=== PATIENT | female | born 1975 | race Caucasian/White ===

== ENCOUNTER 2018-06-14 18:50 | Emergency (ER) | payer OTHER ==
[2018-06-14 19:06] VITALS: BP 150/77
[2018-06-14] MEDS ORDERED: LIDOCAINE 1% SDV 5 ML VIAL DILUENT ONE (19:15)
[2018-06-14] MEDS ORDERED: AZITHROMYCIN 250 MG TAB PO ONE (19:15)
[2018-06-14] MEDS ORDERED: cefTRIAXone SOD 250 MG VIAL (J0696) IM ONE (19:15)
[2018-06-14 20:50] LABS: CHLAMYDIA DNA AMPLIFICATION NEGATIVE (NEGATIVE); GC DNA AMPLIFICATION POSITIVE (NEGATIVE)
[2018-06-14 22:17] LABS: HIV 1&2 SCREEN CENTAUR NEGATIVE (NEGATIVE)
[2018-06-16 13:17] LABS: HEPATITIS B SURFACE ANTIBODY NEGATIVE (POSITIVE); HEPATITIS B SURFACE ANTIGEN NEGATIVE (NEGATIVE); HEPATITIS C VIRUS ABY INDEX 0.1 INDEX (<0.8)
== END 2018-06-14 19:57 | disposition home or self-care (01) ==
LOC: M ED 18:50
DX: Z20.2 Contact with and (suspected) exposure to infections with a predominantly sexual mode of transmission (principal); Z88.6 Allergy status to analgesic agent
CPT/HCPCS: 86706; 86780; 86803; 87210; 87340; 87389; 87491; 87591; 96372; 99283; J0696

== ENCOUNTER 2018-07-06 09:41 | Emergency (ER) | payer OTHER ==
[~2018-07-06] VITALS: Ht 157.5 cm; Wt 76.5 kg
[2018-07-06] MEDS ORDERED: GI COCKTAIL 50ML BTL(HYOSCYAMINE/MAALOX/LIDOCAINE VISCOUS)(1:3:1) PO ONE (10:45)
[2018-07-06] MEDS ORDERED: ONDANSETRON 4 MG ORAL DISINTEGRATING TAB (Q0162 PER 1MG) PO ONE (11:15)
[2018-07-06] MEDS ORDERED: PROT1TAB2 PO (13:07)
[2018-07-06] MEDS ORDERED: CARA1TAB6 PO (13:07)
[2018-07-06 13:15] VITALS: BP 120/68
--- NOTE | 2018-07-06 13:22 | REP ---
ABDOMINAL SERIES: Supine and erect views of the abdomen demonstrate no free air and no evidence for bowel obstruction. No dilated small bowel loops are seen. Phleboliths are seen in the left pelvis. There is spina bifida occulta of L5 which is a normal variant. An accompanying view of the chest demonstrates no acute infiltrate. Heart is normal in size and the mediastinal silhouette is unremarkable. IMPRESSION: No evidence of free air or obstruction. Lungs are clear. Electronically Signed by Boubacar Taylor MD 07/07/2018 09:22 A
--- NOTE | 2018-07-07 06:01 | ECGEPIP ---
[facility] - ED Test Date: 2018-07-06 Pat Name: CIELO COOK Department: Room: - Gender: F Display Coordinator: rigo : 1975 Requested By: JENNY GUAJARDO PA-C. Order Number: [id number] Reading MD: Mauro Cheema Measurements Intervals [place] Rate: 78 P: 47 IL: 142 QRS: 37 QRSD: 86 T: 43 QT: 361 QTc: 414 Interpretive Statements SINUS RHYTHM NO PRIORS FOR COMPARISON Electronically Signed on 07-07-2018 6:00:35 EDT by Mauro Cheema
== END 2018-07-06 13:17 | disposition home or self-care (01) ==
LOC: M ED 09:41
DX: K29.00 Acute gastritis without bleeding (principal); Z88.6 Allergy status to analgesic agent
CPT/HCPCS: 74021; 93005; 99284; Q0162

== ENCOUNTER → 2018-10-07 | Outpatient (REF) | payer OTHER ==
[~2018-10-07] MED LIST: CARA1TAB6 PO; PROT1TAB2 PO
[2018-10-07 12:12] LABS: C REACTIVE PROTEIN QUANTITATIV < 0.30 MG/DL (0.00-0.30); RHEUMATOID FACTOR QUANT < 10.0 IU/ML (<15.0)
[2018-10-07 12:35] LABS: ALBUMIN 4.3 GM/DL (3.2-5.2); ALT/SGPT 29 U/L (12-78); BILIRUBIN,TOTAL 0.5 MG/DL (0.2-1.0); BLOOD UREA NITROGEN 12 MG/DL (7-18); CALCIUM LEVEL 9.1 MG/DL (8.5-10.1); CARBON DIOXIDE LEVEL 26 MEQ/L (21-32); CHLORIDE LEVEL 107 MEQ/L (98-107); CHOLESTEROL LEVEL 165 MG/DL (<200); CHOLESTEROL RISK RATIO 4.024 (<5); CREATININE FOR GFR 0.81 MG/DL (0.55-1.30); GLOMERULAR FILTRATION RATE > 60.0 (>58); GLUCOSE, FASTING 86 MG/DL (70-100); HDL CHOLESTEROL 41 MG/DL (>40); LDL CHOLESTEROL 108 MG/DL (<100); NON-HDL-C 124 MG/DL; POTASSIUM SERUM 4.2 MEQ/L (3.5-5.1); SODIUM LEVEL 141 MEQ/L (136-145); TOTAL PROTEIN 7.4 GM/DL (6.4-8.2); TRIGLYCERIDES LEVEL 81 MG/DL (<150)
[2018-10-07 13:52] LABS: CHLAMYDIA DNA AMPLIFICATION NEGATIVE (NEGATIVE); GC DNA AMPLIFICATION NEGATIVE (NEGATIVE)
[2018-10-08 11:11] LABS: HIV 1&2 SCREEN CENTAUR NEGATIVE (NEGATIVE)
[2018-10-08 14:50] LABS: ANTINUCLEAR ANTIBODIES DIRECT Negative (Negative)
== END ==
LOC: M SFHCPLAZ 08:20
PROVIDERS: ATTEND Nurse Practitioner Family
DX: Z00.00 Encounter for general adult medical examination without abnormal findings (principal); Z13.220 Encounter for screening for lipoid disorders; Z20.2 Contact with and (suspected) exposure to infections with a predominantly sexual mode of transmission; Z11.59 Encounter for screening for other viral diseases; M25.50 Pain in unspecified joint
CPT/HCPCS: 36415; 80053; 80061; 85652; 86038; 86140; 86431; 86780; 87389; 87491; 87591; G0472

== ENCOUNTER 2019-09-01 13:09 | Inpatient (IN) | payer OTHER ==
[~2019-09-01] VITALS: Ht 157.5 cm; Wt 82.2 kg
[2019-09-01] MEDS ORDERED: HYDROXYZINE 10 MG (13:19)
[2019-09-01 14:01] LABS: HEMATOCRIT 47.1 % (36.0-47.0); HEMOGLOBIN 15.5 g/dl (12.0-15.5); MEAN CORPUSCULAR HEMOGLOBIN 28.5 pg (27.0-33.0); MEAN CORPUSCULAR HGB CONC 32.9 g/dl (32.0-36.5); MEAN CORPUSCULAR VOLUME 86.6 fl (80.0-96.0); PLATELET COUNT, AUTOMATED 281 10^3/uL (150-450); RED BLOOD COUNT 5.44 10^6/uL (4.00-5.40); WHITE BLOOD COUNT 17.1 10^3/uL (4.0-10.0)
[2019-09-01 14:29] LABS: AMPHETAMINES LEVEL URINE NEGATIVE (NEGATIVE); BARBITURATES URINE NEGATIVE (NEGATIVE); BENZODIAZEPINES URINE NEGATIVE (NEGATIVE); CANNABINOIDS URINE NEGATIVE (NEGATIVE); COCAINE METABOLITE URINE NEGATIVE (NEGATIVE); METHADONE URINE NEGATIVE (NEGATIVE); OPIATES URINE NEGATIVE (NEGATIVE); PHENCYCLIDINE URINE NEGATIVE (NEGATIVE)
[2019-09-01 14:43] LABS: HCG, SERUM QUALITATIVE NEGATIVE (NEGATIVE)
[2019-09-01 14:46] LABS: ACETAMINOPHEN LEVEL < 2.0 UG/ML (10.0-30.0); ALBUMIN 4.4 GM/DL (3.2-5.2); ALT/SGPT 44 U/L (12-78); BILIRUBIN,DIRECT 0.2 MG/DL (0.0-0.2); BILIRUBIN,TOTAL 0.5 MG/DL (0.2-1.0); BLOOD UREA NITROGEN 5 MG/DL (7-18); CALCIUM LEVEL 9.3 MG/DL (8.5-10.1); CARBON DIOXIDE LEVEL 25 MEQ/L (21-32); CHLORIDE LEVEL 106 MEQ/L (98-107); CREATININE FOR GFR 0.85 MG/DL (0.55-1.30); ETHYL ALCOHOL (ETHANOL) < 0.003 % (0.000-0.010); GLOMERULAR FILTRATION RATE > 60.0 (>58); GLUCOSE, FASTING 105 MG/DL (70-100); POTASSIUM SERUM 4.1 MEQ/L (3.5-5.1); SALICYLATE LEVEL 3.5 MG/DL (5.0-30.0); SODIUM LEVEL 138 MEQ/L (136-145); TOTAL PROTEIN 8.1 GM/DL (6.4-8.2)
[2019-09-01] MEDS ORDERED: MAALOX 30 ML SUSP *UDC PO PRN (19:00)
[2019-09-01] MEDS ORDERED: ACETAMINOPHEN TAB 650MG DOSE (2X325MG) PO PRN (19:00)
[2019-09-01] MEDS ORDERED: MOM 30ML SUSPENSION UDC PO PRN (19:00)
[2019-09-01 22:43] VITALS: BP 125/80
[2019-09-01] MEDS ORDERED: NICOTINE 21MG/24HR 1 EA TRANSDERMAL TD PRN (22:45)
[2019-09-02 06:26] VITALS: BP 140/87
--- NOTE | 2019-09-02 07:31 | MHHPEPDOC ---
[facility] History & Physical History and Physical DATE OF ADMISSION: Sep 01, 2019 at 18:59 HPI: Cori presents today for concerns regarding her schizophrenia, paranoia, and social anxiety. She is usually functional but had a crying episode where she had thoughts of suicide prior to coming in. She admits to suicidal attempts and previous psychiatric hospitalizations in her 20s. She denies any recent traumas or abuse but endorses auditory hallucinations secondary to post-traumatic stress in the past. MEDICATIONS: Previous treatments include Orason, Xanax, and Abilify. MEDICAL HISTORY: She has a medical history significant for lupus. FAMILY HISTORY: Regarding family history, she denies any family members with mental health issues. SOCIAL HISTORY - SMOKING: She admits to smoking 2 packs daily. Objective Appearance: Well nourished. Well groomed. Appears to be stated age. Affect: Mildly anxious. Speech: Spontaneous and Fluid. Thought Form: Linear and goal directed. Thought Content: No evidence of suicidal ideation. No evidence of aggressive or homicidal ideation. No thoughts of self harm. No evidence of delusions. Judgement: Intact as evidenced by decision making in the recent past. Insight: Good insight into symptoms and treatment options. Assessment F60.3 Borderline personality disorder F43.12 Post-traumatic stress disorder, chronic F33.9 Major depressive disorder, recurrent, unspecified Plan Restart patients previously effective Orason 150 mg BID. Term prioties are 1) suicide 2) depression 3) effective coping. Estimated length of stay is 3-5 days. Vital Signs Vital Signs Date Time Temp Pulse Resp B/P (MAP) Pulse Ox O2 Delivery O2 Flow Rate FiO2 09/02/19 06:26 97.8 80 18 140/87 (104) Room Air 09/01/19 22:43 99 Laboratory Data 24H Labs Laboratory Tests 2 09/01/19 13:30: Nucleated Red Blood Cells % (auto) 0.0, Urine Color YELLOW, Urine Appearance CLEAR, Urine pH 7.0, Urine Specific [place] 1.004, Urine Protein NEGATIVE, Urine Glucose (UA) NEGATIVE, Urine Ketones NEGATIVE, Urine Blood 1+H, Urine Nitrite N EGATIVE, Urine Bilirubin NEGATIVE, Urine Urobilinogen 0.2, Urine Leukocyte Esterase NEGATIVE, Urine WBC (Auto) 0, Urine RBC (Auto) 0, Urine Hyaline Casts (Auto) 0, Urine Bacteria (Auto) NEGATIVE, Urine Squamous Epithelial Cells 2, Urine Sperm (Auto) , Anion Gap 7L, Glomerular Filtration Rate > 60.0, Calcium Level 9.3, Total Bilirubin 0.5, Direct Bilirubin 0.2, Aspartate Amino Transf (AST/SGOT) 28, Alanine Aminotransferase (ALT/SGPT) 44, Alkaline Phosphatase 74, Total Protein 8.1, Albumin 4.4, Albumin/Globulin Ratio 1.2, Thyroid Stimulating Hormone (TSH) 6.240H, Human Chorionic Gonadotropin, Qual NEGATIVE, Salicylates Level 3.5L, Urine Opiates Screen NEGATIVE, Urine Methadone Screen NEGATIVE, Acetaminophen Level < 2.0L, Urine Barbiturates Screen NEGATIVE, Urine Phencyclidine Screen NEGATIVE, Urine Amphetamines Screen NEGATIVE, Urine Benzodiazepines Screen NEGATIVE, Urine Cocaine Metabolite Screen NEGATIVE, Urine Cannabinoids Screen NEGATIVE, Ethyl Alcohol Level < 0.003 CBC/BMP Laboratory Tests 09/01/19 13:30 Medications No Active Prescriptions or Reported Meds Allergies Coded Allergies: aspirin (Verified Allergy, Severe, anaphylaxis, 09/01/19) ibuprofen (Verified Allergy, Severe, anaphylaxis, 09/01/19) BUTCH THACKER DO Sep 02, 2019 07:31
--- NOTE | 2019-09-02 15:55 | HPEPDOC ---
[facility] Medical History & Physical Date of Admission Sep 01, 2019 Date of Service: Sep 02, 2019 History and Physical CHIEF COMPLAINT: "I had a breakdown" HISTORY OF PRESENT ILLNESS: Patient is 44 year old female with PMH Bipolar disorder, schizoprenia and SLE present to [facility] for reportedly mental breakdown. She stated that she did not have any suicidal of homicidal ideation but knows that she need to come in to get help early before things get worse because of her mental health problems. She is not on any medication for SLE, previously on plaquenil and had been off of it for a long time. Denies any physical complaints including any chest pain, SOB, fever or chills. PAST MEDICAL HISTORY: Refer to HPI PAST SURGICAL HISTORY: C section Hysterectomy SOCIAL HISTORY: Smokes 2ppd, refused nicotine patch. Denies alcohol or illicit drug use. FAMILY HISTORY: Mother- breast, lung and colon cancer ALLERGIES: Please see below. REVIEW OF SYSTEMS: 10 point review of system negative except as stated in HPI HOME MEDICATIONS: Please see below. PHYSICAL EXAMINATION: General: No acute distress, Alert Eyes: Normal sclera, EOMI HENT: Atraumatic Cardiovascular: Normal rate, normal rhythm. Pulmonary: Clear to auscultation b/l, no wheezing GI: Soft, nontender, nondistended Skin: Warm and dry Neuro: CN grossly intact. No focal deficits. Strengths equal b/l. Psych: oriented x 3 LABORATORY DATA: See below. MICROBIOLOGY: Please see below. ASSESSMENT AND PLAN: 1. bipolar and schizophrenia - eval and treat per psych. - On [place] and trazodone. 2. SLE - No active issues noted. - Not on any maintenance medications at this time, no skin lesions noted. 3. Leukocytosis - No fever or other evidence of infection. No reported cough. - Likely does not need any antibiotics as there are no obvious source. - Repeat CBC shows significant improvement. No physical complaints at this time. Will sign off, please call back with any questions or concerns. Vital Signs Vital Signs Date Time Temp Pulse Resp B/P (MAP) Pulse Ox O2 Delivery O2 Flow Rate FiO2 09/02/19 06:26 97.8 80 18 140/87 (104) Room Air 09/01/19 22:43 99 Home Medications No Active Prescriptions or Reported Meds Allergies Coded Allergies: aspirin (Verified Allergy, Severe, anaphylaxis, 09/01/19) ibuprofen (Verified Allergy, Severe, anaphylaxis, 09/01/19) A-FIB/CHADSVASC A-FIB History Current/History of A-Fib/PAF?: No TENISHA EID MD Sep 02, 2019 15:55
[2019-09-02 16:22] LABS: HEMATOCRIT 44.4 % (36.0-47.0); HEMOGLOBIN 14.8 g/dl (12.0-15.5); MEAN CORPUSCULAR HEMOGLOBIN 28.7 pg (27.0-33.0); MEAN CORPUSCULAR HGB CONC 33.3 g/dl (32.0-36.5); PLATELET COUNT, AUTOMATED 274 10^3/uL (150-450); RED BLOOD COUNT 5.16 10^6/uL (4.00-5.40); WHITE BLOOD COUNT 11.1 10^3/uL (4.0-10.0)
[2019-09-02 16:48] LABS: BLOOD UREA NITROGEN 12 MG/DL (7-18); CALCIUM LEVEL 9.1 MG/DL (8.5-10.1); CARBON DIOXIDE LEVEL 23 MEQ/L (21-32); CHLORIDE LEVEL 105 MEQ/L (98-107); CREATININE FOR GFR 0.89 MG/DL (0.55-1.30); GLOMERULAR FILTRATION RATE > 60.0 (>58); GLUCOSE, FASTING 95 MG/DL (70-100); POTASSIUM SERUM 4.1 MEQ/L (3.5-5.1); SODIUM LEVEL 137 MEQ/L (136-145)
[2019-09-02 18:08] VITALS: BP 132/62
[2019-09-02] MEDS: LITHIUM CARBONATE 150 MG CAP PO SCH (21:08)
[2019-09-02] MEDS: traZODone 50 MG TAB PO PRN (21:08)
[2019-09-03 06:33] VITALS: BP 116/80
[2019-09-03] MEDS: LITHIUM CARBONATE 150 MG CAP PO SCH ×2 (09:04→20:41)
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
[2019-09-03 15:43] VITALS: BP 124/60
[2019-09-04] MEDS: traZODone 50 MG TAB PO PRN ×2 (00:27→21:06)
[2019-09-04 06:31] VITALS: BP 125/56
[2019-09-04] MEDS: LITHIUM CARBONATE 150 MG CAP PO SCH ×2 (09:15→21:06)
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
[2019-09-04 16:24] VITALS: BP 127/75
[2019-09-05 06:08] VITALS: BP 121/70
--- NOTE | 2019-09-05 07:53 | MHDSPDOC ---
[facility] Discharge Summary Discharge Summary DATE OF ADMISSION: Sep 01, 2019 at 18:59 DATE OF DISCHARGE:09/05/19 DISCHARGE DIAGNOSES: F60.3 Borderline personality disorder F43.12 Post-traumatic stress disorder, chronic F33.9 Major depressive disorder, recurrent, unspecified CONSULTANTS INVOLVED:[ None (basic hospitalist screening)] REASON FOR ADMISSION & TREATMENT AND PROGRESS ON THE UNIT : Cori presented to the ER and was admitted to the unit after experiencing suicidal thoughts in the setting of various stressors. Patient had her medication changed, and she was stirred on lithium (being previously on no medications). She has had positive experiences with [place] in the past. Her medication was increased to 150 mg twice daily with positive effects and no negative side effects. DISCHARGE ASSESSMENT[improved] Legal status considerations: The patient at the time of discharge did not meet criteria for involuntary admission/extension due to having a [normal] mental status exam, [fair] insight into the situation, They are engaged in the discharge process, as well as being friendly and amenable in behavioral control and havent been engaging in any observed concerning behavior or ideation recently. They decline voluntary extension/admission at this time and must be discharged in good bette, as Im unable to make a case for holding the patient against their will. They may have historical risk factors of admissions and other interactions with psychiatry however, those are not modifiable from a clinical perspective. The patient will need to be discharged in good bette. MENTAL STATUS EXAMINATION ON DISCHARGE: [General: Well dressed with good hygiene Speech: Spontaneous and fluid Thought processes: Linear and logical Thought content: Future orientated Abstract reasoning, and computation: Intact Description of associations: Intact Description of abnormal or psychotic thoughts:Denies any suicidal or homicidal ideation. Denies any auditory or visual hallucinations. Does not appear to be responding to internal stimuli. Does not appear to be endorsing any bizarre or paranoid ideation. Judgment: fair Insight: fair Orientation: Alert and orientated 3 Recent and remote memory: Intact Attention span and concentration: Intact Fund of knowledge: Adequate Mood: "okay" Affect: Euthymic with a full range] PLAN/FOLLOWUP ARRANGEMENTS: Follow up appointments made (PCP and MH in 5 days of D/C date) and safety plan completed. Safety Planning aspects completed prior to discharge [Medication supplies limited to 7 days with 4 refills to prevent accumulation to OD] [Family contact completed, educated on safe practices, instructed on removal and mitigation of dangerous means] [RN reviewed crisis hotline information and other aspects to empower patient to access care in interim before next appointment.] Recommended [place] level in next month, educated on proper hydration to avoid toxic effects in excessive summer heat. The amount of time spent in the coordination of care for this patient was approximately 30 minutes. Vital Signs/I&Os Vital Signs Date Time Temp Pulse Resp B/P (MAP) Pulse Ox O2 Delivery O2 Flow Rate FiO2 09/05/19 06:08 97.6 87 16 121/70 (87) 96 Room Air Medications Scheduled [place] Carbonate ([place] Carbonate) 150 Mg Capsule, 150 MG PO BID for mood for 7 Days, #14 Scheduled PRN Nicotine (Nicotine Patch) 21 Mg Patch.td24, 1 PATCH TD DAILYPRN PRN for NICOTINE WITHDRAWAL for 30 Days, #30 Allergies Coded Allergies: aspirin (Verified Allergy, Severe, anaphylaxis, 09/01/19) ibuprofen (Verified Allergy, Severe, anaphylaxis, 09/01/19) BUTCH THACKER DO Sep 05, 2019 07:52
[2019-09-05] MEDS ORDERED: NICO21PAT TD (08:32)
[2019-09-05] MEDS ORDERED: LITH150C PO (08:32)
[2019-09-05] MEDS: LITHIUM CARBONATE 150 MG CAP PO SCH (08:35)
== END 2019-09-05 12:55 | disposition home or self-care (01) | DRG 752 ==
LOC: M ED 13:09 → M ED INP 18:59 → M PSY 21:35
PROVIDERS: ADMIT Psychiatry & Neurology Addiction Medicine; ATTEND Psychiatry & Neurology Addiction Medicine
DX: F60.3 Borderline personality disorder (principal); F33.9 Major depressive disorder, recurrent, unspecified; F43.12 Post-traumatic stress disorder, chronic; Z88.6 Allergy status to analgesic agent; F17.200 Nicotine dependence, unspecified, uncomplicated

== ENCOUNTER 2020-09-29 02:28 | Emergency (ER) | payer OTHER ==
[~2020-09-29] VITALS: Ht 157.5 cm; Wt 69.7 kg
[~2020-09-29 02:28] MED LIST changes: +HYDROXYZINE 10 MG; +LITH150C PO; +NICO21PAT TD
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
[2020-09-29] MEDS ORDERED: PIPERACILLIN/TAZOBACTAM SOD 3.375 GM in D5W MINI-BAG PLUS 50 ML IV ONE (07:20)
[2020-09-29] MEDS ORDERED: AUGM875T28 PO (08:15)
[2020-09-29 08:38] VITALS: BP 127/81
== END 2020-09-29 08:41 | disposition home or self-care (01) ==
LOC: M ED 02:28
DX: K04.7 Periapical abscess without sinus (principal); R22.0 Localized swelling, mass and lump, head; W22.8XXA Striking against or struck by other objects, initial encounter; Y92.019 Unspecified place in single-family (private) house as the place of occurrence of the external cause; Y93.9 Activity, unspecified; Y99.9 Unspecified external cause status; M32.9 Systemic lupus erythematosus, unspecified; Z88.6 Allergy status to analgesic agent; Z79.899 Other long term (current) drug therapy
CPT/HCPCS: 70450; 70486; 96365; 99284; J2543